=== PATIENT | female | born 1970 | race African-American/Black ===

== ENCOUNTER 2025-06-06 08:56 | Emergency (ER) | payer OTHER, SELFPAY ==
[2025-06-06 09:09] VITALS: BP 107/77; PULSE 68; RESP 16; TEMP 35.9; O2SAT 100
--- NOTE | 2025-06-06 09:24 | ED_ITS ---
HPI - Skin/Abscess/Foreign Bdy General Chief complaint: Skin/Abscess/Foreign Body Stated complaint: Poison Maria T Time Seen by Provider: 06/06/25 09:14 Source: patient and RN notes reviewed Mode of arrival: ambulatory Limitations: no limitations History of Present Illness HPI narrative: Patient presents today complaining of a 3 day history of poison maria t after doing yard work. She has tried some topical 0.1% triamcinolone that her received after getting it as well, but it is not working. She reports small patches to the left lower abdomen, left shoulder, and right posterior thigh that are very pruritic. Related Data Home Medications ?Medication ?Instructions ?Recorded ?Confirmed ?Last Taken ?Type No Home Medications 06/06/25 06/06/25 Unknown History Allergies Allergy/AdvReac Type Severity Reaction Status Date / Time No Known Allergies Allergy Verified 06/06/25 09:17 [facility] Comments At time of signature, I have reviewed and agree with nursing past medical, surgical, social and family history unless otherwise noted. Please see nursing chart for further information. There is no relevant family history pertinent to the presenting complaint Exam Narrative: GENERAL: Well-appearing, well-nourished, and in no acute distress. HEAD: Normocephalic, atraumatic. EYES: EOMI. No redness or drainage. Conjunctivae normal. ENT: Mucous membranes pink and moist. NECK: Normal AROM. CHEST: No respiratory distress. EXTREMITIES: Normal range of motion. No edema. SKIN: Warm, dry. Capillary refill normal. Normal skin turgor. Small patches of mildly erythematous papular rash to the top of the left shoulder (dime-size), right posterior leg (0.5 cm by approximately 3 cm), and the left lower quadrant (multiple tiny patches measuring approximately 3 x 3 cm in total). No induration, drainage, vesicles, crusting. NEURO: No focal deficits. Alert and oriented x3. Gait steady. PSYCH: Normal affect. No signs of depression or anxiety. Course Course Level of Care: Express Care Visit Vital Signs Vital signs: Vital Signs Temperature 96.7 F L 06/06/25 09:09 Pulse Rate 68 06/06/25 09:09 Respiratory Rate 16 06/06/25 09:09 Blood Pressure 107/77 06/06/25 09:09 Pulse Oximetry 100 06/06/25 09:09 Temperature 96.7 F L 06/06/25 09:09 Pulse Rate 68 06/06/25 09:09 Respiratory Rate 16 06/06/25 09:09 Blood Pressure 107/77 06/06/25 09:09 Pulse Oximetry 100 06/06/25 09:09 Reviewed MDM - Skin/Abscess/Foreign Bdy MDM Narrative Medical decision making narrative: 54-year-old female patient presents today with suspicion of poison maria t after doing yard work. Rash has been present for 3 days and is extremely pruritic. She has tried 0.1% triamcinolone without improvement. Patient's rash has no indication of bacterial infection after exam. Review of UpToDate recommendations regarding treatment of poison maria t dermatitis show that limited [id number] dermatitis with no or few vesicles/blisters show treatment with high to super high potency topical corticosteroids twice daily with recommendations of clobetasol 0.05%. Prescription for clobetasol sent to pharmacy with strict discharge instruction/recommendations provided to patient regarding application. Vital signs stable. Differential Diagnosis Differential diagnosis: Likely abscess of skin or subcutaneous tissue, viral exanthem, dermatophytosis, urticaria, cellulitis, impetigo and contact dermatitis Critical Care Time Critical Care Time Critical Care Time: No Discharge Plan Discharge Clinical Impression: Poison maria t dermatitis Patient Disposition: Home Condition: Stable Instructions: Poison Maria T (ED) Additional Instructions: Use the clobetasol as prescribed for up to 2 weeks. Only apply to the small areas of the rash. Minimize contact to non affected areas. Do not cover, bandage, or wrap the treated areas. As discussed, do not put it on your face or in the genital area. Wash hands after use. You may also take an antihistamine such as Zyrtec, Claritin, or Chelsi for itching. Follow-up with your PCP in 1 week if symptoms are not improving. Patient Language: Divehi Prescriptions: New clobetasol 0.05 % cream 1 applic topical BID 14 Days Qty: 30 0RF No Action No Home Medications Follow-up/Referrals: PHYSICIAN,BUS CLEANER [Primary Care Provider] - Time of Disposition: 09:28
== END 2025-06-06 09:30 | disposition home or self-care (01) ==
PROVIDERS: Emergency Provider Nurse Practitioner
DX: L23.7 Allergic contact dermatitis due to plants, except food (principal)
CPT/HCPCS: 99203; G0463